=== PATIENT | female | born 1970 | race Caucasian/White ===

== ENCOUNTER → 2024-03-03 06:50 | Outpatient (REF) | payer BC, SELFPAY ==
[2024-03-03 08:25] LABS: % Basophils 0.2 % (0-2); % Eosinophils 1.5 % (0-6); % Immature Granulocytes 0.2 % (0-0.5); % Lymphocytes 26.4 % (20.5-51.1); % Monocytes 5.1 % (1.7-9.3); % Neutrophils 66.6 % (42.2-75.2); Absolute Eosinophils 0.1 10^3/uL (0-0.7); Absolute Lymphocytes 1.4 10^3/uL (1.2-3.4); Absolute Monocytes 0.3 10^3/uL (0.1-0.6); Absolute Neutrophils 3.5 10^3/uL (1.4-6.5); Hematocrit 43.7 % (37.0-47.0); Hemoglobin 14.6 g/dL (12.0-16.0); Mean Corp Hgb Conc. 33.4 g/dL (33.0-37.0); Mean Corpuscular Hgb 29.4 pg (27.0-31.0); Mean Corpuscular Volume 87.9 fL (81.0-99.0); Mean Platelet Volume 9.4 fL (7.4-10.4); Nucleated Red Blood Cells % 0 %; Platelet Count 202 10^3/uL (130-400); Red Blood Cell Count 4.97 10^6/uL (4.20-5.40); Red Cell Dist. Width 13.2 % (11.5-14.5); White Blood Cell Count 5.3 10^3/uL (4.8-10.8)
[2024-03-03 08:44] LABS: ALT (SGPT) 25 U/L (0-35); AST (SGOT) 27 U/L (14-36); Albumin 4.3 g/dl (3.5-5.0); Alkaline Phosphatase 65 U/L (38-126); Blood Urea Nitrogen 21 mg/dl (7-17); Calcium 9.3 mg/dl (8.4-10.2); Carbon Dioxide 25 mmol/L (22-30); Chloride 107 mmol/L (98-107); Glucose 93 mg/dl (70-99); HDL Cholesterol 46 mg/dl; Iron 94 ug/dl (37-170); LDL Cholesterol, Calculated 169 mg/dl; Potassium 4.5 mmol/L (3.5-5.1); Sodium 137 mmol/L (135-145); Total Cholesterol 235 mg/dl (50-199); Total Protein 6.8 g/dl (6.3-8.2); Triglyceride 103 mg/dl (10-149); Very Low Density Lipoprotein 20 mg/dl (0-30); eGFR > 60.00
[2024-03-03 08:54] LABS: Percent Saturation 32 % (20-50); Total Iron Binding Capacity 291 ug/dl (265-497)
[2024-03-03 09:13] LABS: Erythrocyte Sed Rate 11 mm/hour (0-20)
[2024-03-03 09:20] LABS: TSH 3.26 uIU/ml (0.47-4.68)
[2024-03-03 09:24] LABS: Ferritin 72.6 ng/ml (11.1-264.0)
[2024-03-03 10:08] LABS: Creatine Phosphokinase 75 U/L (30-135)
[2024-03-03 10:24] LABS: Free T4 1.09 ng/dl (0.78-2.19)
[2024-03-04 16:01] LABS: Lyme Antibody Screen, EIA Negative (Negative); Rheumatoid Agglutinin Less Than 10 IU (<10 IU)
[2024-03-04 16:28] LABS: Thyroglobulin 19.5 ng/mL (1.3-31.8); Thyroglobulin Antibodies <0.9 IU/mL (0.0-4.0)
[2024-03-04 22:40] LABS: ANA, IgG Reflex to HEp-2 None Detected (None Detected)
[2024-03-05 00:50] LABS: Aldolase 3.7 U/L (1.2-7.6)
[2024-03-05 04:28] LABS: TSH Receptor Antibody <1.10 IU/L (<=1.75)
[2024-03-05 10:31] LABS: CRP, Highly Sensitive 8.74 mg/L
[2024-03-06 09:43] LABS: Intact PTH 75.3 pg/ml (13.6-85.8)
== END ==
LOC: REG 06:50
PROVIDERS: ATTENDING PHYSICIAN Nurse Practitioner Primary Care
DX: E78.2 Mixed hyperlipidemia (principal); R25.2 Cramp and spasm; M25.50 Pain in unspecified joint; Z00.00 Encounter for general adult medical examination without abnormal findings; E03.9 Hypothyroidism, unspecified; L65.9 Nonscarring hair loss, unspecified
CPT/HCPCS: 36415; 80053; 80061; 82085; 82550; 82728; 83520; 83540; 83550; 83970; 84432; 84439; 84443; 85025; 85652; 86038; 86140; 86141; 86430; 86618; 86800

== ENCOUNTER → 2024-12-21 12:20 | Outpatient (REF) | payer BC, SELFPAY | LOC: RAD 12:20 | PROVIDERS: ATTENDING PHYSICIAN Nurse Practitioner Family | DX: M79.604 Pain in right leg (principal) | CPT/HCPCS: 93971 ==